=== PATIENT | male | born 1965 | race Caucasian/White ===

== ENCOUNTER 2018-05-03 16:30 | Outpatient (RCR) | payer OTHER, SELFPAY ==
--- NOTE | 2018-03-29 09:23 | HP.OTEVAL_ITS ---
Patient's Visit Information WALE BRANDON is a 52 year old M, referred to Occupational Therapy by SACHIN GO, with a diagnosis of right wrist drop. Date of Evaluation: 03/28/18 Occupational Therapist: Ella Jimenez, OG/Nestor, CHT - Subjective Subjective: This 52 year old male was seen for intial OT eval with dx of right wrist drop- pt states on Mar.15 he woke upt with the inability to extend his fingers and wrist-. pt states he did fall out of bed and hit his head a few nights before, so he is not sure if it is related to this accident or not. pt states he does have CTS. pt states some tingling in his LF/RF. 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 Pt will demo an increase in lateral and tripod pinch by 4# to increase pts independent with opening baggies, containers at PLOF by D/C. Goal:: pt will demo full wrist and digit ext to WNL to return pt to PLOF with ADLs, IADLs and work tasks by d/c. Goal:: pt will demo the ability to manipulate coins, and hold small, med, and large objects ind. by D/C Goal:: pt will demo understanding of orthosis use and precautions by end of 1st session to prevent skin irritation - Rehabilitation General Assessment: pt demo with a limited ability to extend wrist and fingers- placing pts wrist and MCP in Neutral position pt demo ability to extend digits at PIP levels. Pt demo weak telecommunications network planner and pinch strength and coompromised AROM of right wrist/hand. pt would benefit from skilled OT services 1x week for 6 weeks to assist pt with ad. devices to return to [facility] with ADLS and work tasks. Due to pts limited wrist and digit ext pt would benefit from custom low profile radial N. orthosis that allows for digit flex but assist pt with digit ext.- Today therapist noé. one for pt ed. pt on use and crare. Pt demo understanding- with orthosis on pt demo ability to flower buncher or picker pen. Pt was also ed. in radial N gluide ex. pt demo performace of ex. well. Rehabilitation Potential: Good - Anticipated Interventions Anticipated Interventions: A/AAROM/PROM, Strengthening, Triggerpoint Release, Modalities, Orthoses, Fine Motor Coord/Carlo, Home Program Other Interventions: Nerve gluide - Visit Plan Frequency: 1x/Week Duration: 6 Weeks TEXT: Thank you for the opportunity to evaluate your patient. For Medicare and Medicare HMO plans, please review the plan of care and approve it. It will need to be FAXED BACK to us at [phone] for Medicare purposes. Please let me know if there are questions or concerns regarding this plan of care. Physician Lizzette re: Date:
--- NOTE | 2018-09-19 08:23 | HP.OT.NRP ---
HP - Discharge Summary - Patient Information WALE BRANDON was seen in my office for initial evaluation on 03/28/18. The following Plan of Care was established for this patient: Initial Frequency: 1x/Week Initial Duration: 6 Weeks Plan: cont FES - Anticipated Interventions Anticipated Interventions: A/AAROM/PROM, Strengthening, Triggerpoint Release, Modalities, Orthoses, Fine Motor Coord/Carlo, Home Program Other Interventions: Nerve gluide This patient was last seen in our office 05/03/18. Pertinent comments regarding their Occupational therapy will appear below: PT was seen for 7 OT visits for radial nerve wrist drop. Pt recived radial nerve brace and demo understanding of nerve glides-pt to see maddie on results of MRI and has not returned to therapy. Due to time lapse in care pt d/c At this point I will be discontinuing this patient from occupational therapy. I would be happy to see this patient again in the future if found appropriate by the physician. Thank you! Ella Jimenez, OTR/L, CHT
== END 2018-05-03 19:00 | disposition home or self-care (01) ==
LOC: OT 16:30
PROVIDERS: Family Provider Family Medicine; PCP Family Medicine
DX: M21.331 Wrist drop, right wrist (principal); M20.091 Other deformity of right finger(s)
CPT/HCPCS: 97110; 97166; 97530; 97760; 97763

== ENCOUNTER → 2023-03-29 | Outpatient (CLI) | payer OTHER, SELFPAY ==
--- OUTSIDE RECORDS SUMMARY | 2023-03-29 13:43 | XMS RPT_ITS | CCD ---
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 Mechanic Name Role Phone Katherin Stoddard Primary Care Provider Barrett, Aleida Unavailable Unavailable Chela, Avirup Unavailable Unavailable Zbyron, Rickie Unavailable Unavailable Katherin Stoddard Unavailable Unavailable Miles Stoddard Unavailable Unavailable Khanh Zavaleta Unavailable Unavailable Barrett, Aleida Unavailable Unavailable Chela, Avirup Unavailable Unavailable Jeanie Cuevas Unavailable Unavailable Brigitte Love Unavailable Unavailable Adryan Joshua Unavailable Unavailable Chela, Avirup Unavailable Unavailable Katherin Stoddard Primary Care Provider SYSTEM, PROVIDER NOT IN Admitting UnavailROSIBEL Dumont Attending Unavailable ADRIANO ZHOU Referring Unavailable KATHERIN STODDARD Primary Care Unavailable Bebeto Guevara Unavailable Unavailable Zumbar, Rickie Unavailable Unavailable Kelsi Sargent Unavailable Unavailable Bebeto Guevara Unavailable Unavailable Arlyn Katherin A Unavailable Unavailable Unavailable Unavailable Unavailable Dr. Rickie Milner Referring Unavailable Arlyn, Dr. Katherin Reyes Primary Care Unavaila Kapil Sarkar Attending Unavailab le Alf, Dr. Rickie Wyatt Attending Sonamv bhavin Stoddard, Dr. Katherin Reyes Primary Care Unavaila esvin Milner, Dr. Rickie Wyatt Attending Paramjit Stoddard, Dr. Katherin Reyes Primary Care Unavaila esvin Stoddard, Dr. Katherin Reyes Primary Care Unavaila esivn Milner, Dr. Rickie Wyatt Attending Unav ailable Arlyn, Dr. Katherin Reyes Primary Care Unavaila ble Zumbar, Dr. Rickie Wyatt Attending Unav ailable Zumbar, Dr. Rickie Wyatt Attending Unav ailable Arlyn, Dr. Katherin Reyes Primary Care Unavaila ble Arlyn, Dr. Katherin Reyes Primary Care Unavaila ble Arlyn, Dr. Katherin Reyes Attending Unavaila ble Arlyn, Dr. Katherin Reyes Primary Care Unavaila ble Erma, MsCandida Benjamin Attending Unavai lable Erma, Ms. Orquidea Benjamin Referring Unavai lable Arlyn, Dr. Katherin Reyes Primary Care Unavaila ble Zumbar, Dr. Rickie Wyatt Attending Unav ailable Zumbar, Dr. Rickie Wyatt Referring Unav ailable Zumbar, Dr. Rickie Wyatt Admitting Unav ailable Arlyn DO, Katherin Reyes Primary Care Provider Arlyn DO, Katherin Reyes Unavailable [phone] KATHERIN STODDARD Primary Care Unavailable ARLYNKATHERIN GAMA Primary Care Unavailable KATHERIN STODDARD Referring Unavailable Arlyn DO, Katherin Reyes Primary Care Provider Arlyn DO, Katherin Reyes Unavailable Allergies Allergy Classification Reported Allergen(s) Allergy Type Date of Onset Reaction(s) Facility Bee/Wasp/Ant Venom (2 sources) apis mellifera venom Substance Allergy Unknown -[facility] Work Phone: (3 sources) Bee Venom Protein (Honey Bee); Translations: [Unknown] Propensity to adverse reactions to drug 6 [facility] (20 sources) apis mellifera venom allergy to substance Unknown [facility] Work Phone: (3 sources) ALLERGIES NOT ON FILE; Translations: [ALLERGIES NOT ON FILE] Propensity to adverse reactions (disorder) [facility] Medications Completed/Discontinued Medications Medication Drug Class(es) Dates Sig (Normalized) Sig (Original) acetaminophen 325 mg / HYDROcodone bitartrate 10 mg oral tablet (20 sources) Opioid Agonist take 1 tablet by mouth every four hours as needed for pain HYDROcodone-Aceta minophen 10-325 MG Oral Tablet TAKE 1 TABLET EVERY 4 HOURS NEEDED FOR PAIN. Quantity: 0 Refills: 0 Ordered: 11-Mar-2020 DO Active [id number] 200 actuat albuterol 0.09 mg/actuat metered dose inhaler (20 sources) beta2-Adrenergic Agonist Start: 04-29-2015 ProAir HFA 108 (90 Base) MCG/ACT AERS Quantity: 0 Refills: 0 Ordered: 29-Apr-2015 DO Start : 29-Apr-2015 Active Problems Active Problems Problem Classification Problem Date Documented Date Episodic/Chronic Cardiac dysrhythmias (20 sources) Atrial fibrillation; Translations: [Atrial fibrillation] Onset: 07-24-2021 Chronic Chronic obstructive pulmonary disease and bronchiectasis (2 sources) Centrilobular emphysema; Translations: [Other emphysema] Onset: 11-03-2021 Chronic Coronary atherosclerosis and other heart disease (1 source) Atherosclerotic heart disease of ramona coronary artery without angina pectoris; Translations: [Athscl heart disease of ramona coronary artery w/o ang pctrs] Onset: 11-03-2021 Chronic Diabetes mellitus without complication (4 sources) Impaired fasting glucose; Translations: [Impaired fasting glucose] Onset: 12-27-2022 Episodic Disorders of lipid metabolism (1 source) Hyperlipidemia, unspecified; Translations: [Hyperlipidemia, unspecified] Onset: 07-24-2021 Chronic Esophageal disorders (1 source) Gastro-esophageal reflux disease without esophagitis; Translations: [Gastro-esophageal reflux disease without esophagitis] Onset: 07-24-2021 Chronic Essential hypertension (1 source) Essential (primary) hypertension; Translations: [Essential (primary) hypertension] Onset: 07-24-2021 Chronic Other acquired deformities (1 source) Wristdrop; Translations: [Right wrist drop] Episodic Other and unspecified benign neoplasm (20 sources) Cavernous hemangioma; Translations: [Hemangioma of unspecified site] Episodic Other connective tissue disease (20 sources) Spasm; Translations: [Spasm of muscle] Episodic Other connective tissue disease (20 sources) Hand pain; Translations: [Pain in limb] Episodic Past or Other Problems Problem Classification Problem Date Documented Date Episodic/Chronic Abdominal hernia (1 source) Diaphragmatic hernia without obstruction or gangrene; Translations: [Diaphragmatic hernia without obstruction or gangrene] Onset: 11-03-2021 Episodic Other aftercare (1 source) assisted (current) use of anticoagulants; Translations: [assisted (current) use of anticoagulants] Onset: 07-24-2021 Episodic Other aftercare (1 source) 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 non-steroidal anti-inflammatories (NSAID); Translations: [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 non-steroidal non-inflam (NSAID)] Onset: 07-24-2021 Episodic Other and unspecified benign neoplasm (4 sources) Hemangioma unspecified site; Translations: [Hemangioma unspecified site] Onset: 12-04-2021 Episodic Other lower respiratory disease (1 source) Other nonspecific abnormal finding of lung field; Translations: [Other nonspecific abnormal finding of lung field] Onset: 11-03-2021 Episodic Residual codes; unclassified (1 source) Other specified postprocedural states; Translations: [Other specified postprocedural states] Onset: 12-04-2021 Episodic Spondylosis; intervertebral disc disorders; other back problems (20 sources) Lumbosacral stenosis; Translations: [Low back pain] Onset: 08-25-2021 Episodic Spondylosis; intervertebral disc disorders; other back problems (10 sources) Radiculopathy of lumbosacral spine due to disc disorder; Translations: [Intervertebral disc disorders with radiculopathy, lumbosacral region] NEGATED: Highlighted row has not occurred!Residual codes; unclassified (20 sources) Disease Episodic Results Test Name Value Interpretation Reference Range Facil ity Vital Signs Date Time Vital Sign Value Performing Clinician Faci lity 12-17-2021 13:18-0400 Body mass index (BMI) [Ratio] 40.41 kg/m2 Katherin Healy [place] Work Phone: EJ-Uqlbwxlfpfsy-Ft uja Work Phone: 12-17-2021 13:18-0400 Body surface area Derived from formula 2.25 m2 Katherin Healy Sh[place] Work Phone: UY-Bfdhhrkczsay-Qv uja Work Phone: 12-17-2021 13:18-0400 Body weight 117.03 kg Katherin Stoddard Work Phone: OJ-Yqzrrlmihibl-Tl uja Work Phone: 12-17-2021 13:18-0400 Diastolic blood pressure 78 mm[Hg] Katherin Stoddard Work Phone: AG-Kzbowsslrmtp-Up uja Work Phone: 12-17-2021 13:18-0400 Heart rate 60 /min Katherin Stoddard Work Phone: CV-Jzndwclslnpf-Yf uja Work Phone: 12-17-2021 13:18-0400 Respiratory rate 14 /min Katherin Stoddard Work Phone: AX-Zpauabqfpmbg-Fu uja Work Phone: 12-17-2021 13:18-0400 Systolic blood pressure 141 mm[Hg] Katherin Stoddard Work Phone: YQ-Anvtchwowtxs-Mk uja Work Phone: 12-17-2021 13:18-0400 0 1 Katherin Stoddard Work Phone: EB-Nudfhlhkgxfi-Bg uja Work Phone: Encounters Encounter Date Encounter Type Care Provider Facility Start: 12-27-2022 End: 12-28-2022 Encounter for general adult medical examination without abnormal findings KATHERIN REYES [facility] Start: 12-27-2022 End: 12-28-2022 ambulatory KATHERIN REYES [facility] Start: 12-27-2022 End: 12-27-2022 Subsequent hospital visit by physician [address] Procedures Date Procedure Procedure Detail Performing Clinician Start: 12-27-2022 CT LUNG SCREENING LOW DOSE KATHERIN STODDARD Start: 12-27-2022 CBC W Auto Different ial panel - Blood Start: 12-27-2022 Comprehensive metabo lic 2000 panel - Serum or Plasma Start: 12-27-2022 Hemoglobin A1c/Hemoglobin.total in Blood Start: 10-23-2023 Lipid panel Start: 12-27-2022 PROSTATE SPECIFIC ANTIGEN Start: 12-27-2022 Thyrotropin [Units/v olume] in Serum or Plasma Start: 12-27-2022 CT Chest for screening Katherin Stoddard DO Work Phone: Start: 12-27-2022 Lipid 1996 panel - S myriam or Plasma [facility] 1 Start: 10-24-2021 Lipid 1996 panel - S myriam or Plasma [facility] 1 Start: 07-24-2021 Destructive procedure M codik Monet Stoddard Work Phone: Plan of Treatment Date Care Activity Detail Author Start: 12-28-2027 Lipid panel Lipid Panel [facility] Start: 10-24-2026 Lipid panel Lipid Panel [facility] Start: 11-05-2022 Influenza vaccination Influenz a Vaccine (#1) [facility] Start: 05-20-2022 FUV, Provider: Zelalem Simmons, Status: Pen, Time: 3:45 PM FUV, Provider: Zelalem Simmons, Status: Pen, Time: 3:45 PM [facility]tzxij[facility]dh[facility] [address] Work Phone: Start: 03-05-2022 FUV, Provider: Khanh Zavaleta, Status: Pen, Time: 10:40 AM FUV, Provider: Khanh Zavaleta, Status: Pen, Time: 10:40 AM XF-Phcbwqmhwktg-Gjbr a Work Phone: Start: 07-20-2021 FUV, Provider: Rickie Milner, Status: Pen, Time: 3:30 PM FUV, Provider: Rickie Milner, Status: Pen, Time: 3:30 PM [facility] Work Phone: Start: 05-20-2021 FUV, Provider: Zelalem Simmons, Status: Pen, Time: 3:45 PM FUV, Provider: Zelalem Simmons, Status: Pen, Time: 3:45 PM [facility] Work Phone: Start: 05-20-2021 FUV, Provider: Jayy York, Status: Pen, Time: 3:15 PM FUV, Provider: Jayy York, Status: Pen, Time: 3:15 PM -[facility] Work Phone: Start: 04-13-2021 FUV, Provider: Rickie Milner, Status: Pen, Time: 3:30 PM FUV, Provider: Rickie Milner, Status: Pen, Time: 3:30 PM [facility] Work Phone: Start: 02-17-2021 FUV, Provider: Bebeto Guevara, Status: Pen, Time: 3:30 PM FUV, Provider: Bebeto Guevara, Status: Pen, Time: 3:30 PM [facility] 300 Work Phone: Start: 02-09-2021 FUV, Provider: Rickie Milner, Status: Pen, Time: 3:30 PM FUV, Provider: Rickie Milner, Status: Pen, Time: 3:30 PM [facility] Work Phone: Start: 01-06-2021 FUV, Provider: Bebeto Guevara, Status: Pen, Time: 3:30 PM FUV, Provider: Bebeto Guevara, Status: Pen, Time: 3:30 PM [facility] Work Phone: Start: 01-06-2021 FUV, Provider: Rickie Milner, Status: Pen, Time: 3:30 PM FUV, Provider: Rickie Milner, Status: Pen, Time: 3:30 PM [facility] Work Phone: Start: 12-01-2020 FUV, Provider: Rickie Milner, Status: Pen, Time: 3:30 PM FUV, Provider: Rickie Milner, Status: Pen, Time: 3:30 PM [facility] Work Phone: Start: 11-04-2020 FUV, Provider: Rickie Milner, Status: Pen, Time: 3:30 PM FUV, Provider: Rickie Milner, Status: Pen, Time: 3:30 PM -[facility] Work Phone: Start: 09-09-2020 FUV, Provider: Rickie Milner, Status: Pen, Time: 3:30 PM FUV, Provider: Rickie Milner, Status: Pen, Time: 3:30 PM [facility] Work Phone: Start: 08-19-2020 FUV, Provider: Rickie Milner, Status: Pen, Time: 3:30 PM FUV, Provider: Rickie Milner, Status: Pen, Time: 3:30 PM [facility] Work Phone: Start: 05-20-2020 Ct lower extremity w /o contrast material CT Low Extremity without Contrast [facility] Work Phone: Start: 11-06-2019 Influenza vaccinatio n given Sequential Influenza Vaccine (#1) [facility] Start: 11-05-2017 Influenza vaccinatio n given SEQUENTIAL INFLUENZA VACCINE (#1) [facility] Start: 2016 Administration of he rpes zoster vaccine Zoster Vaccines (1 of 2) [facility] Start: 2016 Zoster Vaccines (1 of 2) Zoste r Vaccines (1 of 2) [facility] Start: 1988 DTaP/Tdap/Td Vaccine s (1 - Tdap) DTaP/Tdap/Td Vaccines (1 - Tdap) [facility] Start: 1984 Hepatitis C antibody , confirmatory test Hepatitis C Screening [facility] Start: 1984 Hepatitis C screening Hepatiti s C Screening [facility] Start: 1981 HIV screening HIV Screening [facility] Start: 1969 History and physical examination, annual for health maintenance Wellness Visit [facility] Start: 09-11-1967 MMR Vaccines (1 of 1 - Standard series) MMR Vaccines (1 of 1 - Standard series) [facility] Start: 03-13-1967 COVID-19 Vaccine (#1) COVID-19 Vaccine (#1) [facility] Start: 1966 Hepatitis B Vaccines (1 of 3 - 3-dose series) Hepatitis B Vaccines (1 of 3 - 3-dose series) [facility] Start: 1966 HIV screening HIV Screening [facility] Start: 1966 Prostate specific antigen measurement [facility] Level [facility] Start: 1966 Protein mass conc [facility] Start: 1966 Screening for malign ant neoplasm of colon [facility] Start: 1966 Tetanus vaccination [facility] Start: 1966 Yearly Adult Physical Yearly A dult Physical [facility] NEGATED: Highlighted row has been ruled out! Planned Goals not documented [facility] Work Phone: Payers Date Payer Category Payer Unknown 2019 Private Health Insurance [id number] 2019 Unknown [facility] PL[facility] [id number] 2019-Present [id number] 2015 Unknown MMO [employer] S UPER[employer] PPO xxxxxxxxxxxx 2015-Present [id number] 2015 Unknown [id number] 1966 Unknown [id number] 1966 Unknown [id number] .356 1966 Unknown [id number] [id number] .1069 1966 Unknown [id number] [id number] .1069 1966 Unknown [id number] [id number] .9 1966 Unknown [id number] [id number] .1068 1966 Unknown [id number] [id number] .1069 1966 Unknown [id number] [id number] .1068 1966 Unknown [id number] [id number] .1069 1966 Unknown [id number] [id number] .1068 1966 Unknown [id number] [id number] .1245 1966 Unknown [id number] [id number] .1244 1966 Unknown [id number] .1243 Social History Date Type Detail Facility Start: 03-30-2018 Tobacco smoking status ORIS Unknown if ever smoked [facility] Start: 1966 Sex Assigned At Not on file [facility] Start: 12-17-2022 End: 12-27-2022 Exposure to SARS-CoV-2 (event) Not sure [facility] Alcohol consumption one to two days per week Alcohol consumption one to two days per week [facility] Work Phone: Medical Equipment Procedure Code Equipment Code Equipment Origin al Text Equipment Identifier Dates Plate, Lw Prof Dbl-Y, 6 Hole, 8mm Case [id number] Start: 07-03-2018 Functional Status Date Assessment Result Facility NEGATED: Highlighted row Functional performance Functional status health issues are not documented Disease -Pain [facility] Work Phone: Mental Status Date Assessment Result Facility NEGATED: Highlighted row Cognitive function [Interpretation] Cognitive status health issues are not documented Disease -Pain [facility] Work Phone: Clinical Notes 08-05-2018 to 07-24-2021 Note Date & Type Note Facility 07-24-2021 Note PROCEDURE DETAILS Preoperative Diagnosis: Spondylosis without myelopathy or radiculopathy, lumbosacral region, M47.817 Postoperative Diagnosis: Spondylosis without myelopathy or radiculopathy, lumbosacral region, M47.817 Surgeon: Rickie Milner Resident/Fellow/Other Automotive Project Engineer: None of these were associated with this case Procedure: 1. BILAT L3-L5 MB RFA Anesthesia: Bebeto Morin Estimated Blood Loss: 0 Findings: NA Operative Report: Procedure: Bilateral lumbar medial branch radiofrequency ablation under fluoroscopic guidance of the medial branches of L3-L5 covering the L4-S1 facet joints Diagnosis: Lumbosacral spondylosis Anesthesia: MAC, sedation was needed due to the painful nature of the procedure Complications: none After informed consent was obtained, the patient was brought to the OR and placed in the prone position. The area in question was prepped and draped in sterile fashion. An ipsilateral oblique fluoroscopic view of the lumbar spine was obtained, and after 0.25 ml of lidocaine 2% was administered into the skin at each site, a 20-gauge curved radiofrequency needle with a 10 mm active tip was inserted into the skin and advanced to the junction of the superior articular process and transverse processes of the L4 and L5 vertebrae and to the sacral ala on the left side under intermittent fluoroscopic guidance. Proper needle position was confirmed by AP and lateral fluoroscopy. Sensory stimulation was conducted at 50 Hz at each site and was positive at or below 0.7 V. Motor stimulation was conducted at 2 Hz at each site and was negative for radicular motion at 3 V. Once testing was complete, 1 ml of 2% lidocaine was injected through each needle and radiofrequency lesioning was conducted at 80 degrees Celsius for 90 seconds each site. Two lesioning cycles were done per site. After lesioning was complete, 1 mL of 0.5% bupivacaine was injected through each needle. The needles were removed. Bleeding was minimal. The procedure was repeated in the same manner at the same levels on the opposite side. The patient tolerated the procedure well and was transferred to the recovery room in good condition. Attestation: Note Completion: Attending AttestationI performed the procedure without a resident Electronic Signatures: Rickie Milner) (Signed 24-Jul-2021 10:08) Authored: Post-Operative Note, Chart Review, Note Completion Last Updated: 24-Jul-2021 10:08 by Rickie Milner) [facility] 04-27-2021 History of Present illness Narrative On a scale of 0 to 10, the patient rates the pain at 2.Pain Location: Low Back Pain.Pain Quality: Sharp.Timing/Duration: Intermittent.Exacerbating Factors: repetitive motion and standing.Alleviating Factors: Medications, Repositioning.24 Hour Behavior:Symptoms are the same in the am. DEPENDING ON ACTIVITY.Symptoms are the same as the day progresses. DEPENDING ON ACTIVITY.Symptoms are the same in the pm. DEPENDING ON ACTIVITY.Symptoms are the same when lying down. DEPENDING ON ACTIVITY.Goals for Pain Management:OPIOID RISK SCORE=0. [employer] Work Phone: 02-09-2021 History of Present illness Narrative On a scale of 0 to 10, the patient rates the pain at 5.Pain Location: Low Back Pain.Pain Quality: Aching, Sharp and Throbbing.Timing/Duration: Constant.Exacerbating Factors: standing.Alleviating Factors: Exercise, Medications, Repositioning.24 Hour Behavior:Symptoms are the same in the am.Symptoms are worse as the day progresses.Symptoms are worse in the pm.Symptoms are the same when lying down. [employer] Work Phone: 12-22-2020 History of Present illness Narrative On a scale of 0 to 10, the patient rates the pain at 4.Pain Location: Low Back Pain and bilat.Pain Quality: Aching, Sharp and Throbbing.Pain Radiation: denies since injection.Timing/Duration: Constant and > 12 weeks duration. [employer] Work Phone: 11-13-2020 History of Present illness Narrative Patient is a pleasant 55-year-old male presenting today for a follow up of right hand pain. Patient had an EMG done on 11/13/20. He states his pain scale is a 5/10 today and some days are worse than others. He states he experiences a numbness and tingling sensation that radiates up his entire arm and lasts between 4-6 hours. States he has to pry the fingers open and pain worsens as the day goes on due to strenuous activity. Pt states the pain began with a spinal surgery he had a couple of months ago and notes the hand and arm have never been the same again. He was told by his surgeon that he has another year to be fully recovered, but he does not believe he is healing and is unsure where to go from here. [facility] 300 Work Phone: 11-13-2020 History of Present illness Narrative Patient is a pleasant 55-year-old male presenting today for a follow up of right hand pain. Patient had an EMG done on 11/13/20. He states his pain scale is a 5/10 today and some days are worse than others. He states he experiences a numbness and tingling sensation that radiates up his entire arm and lasts between 4-6 hours. States he has to pry the fingers open and pain worsens as the day goes on due to strenuous activity. Pt states the pain began with a spinal surgery he had a couple of months ago and notes the hand and arm have never been the same again. He was told by his surgeon that he has another year to be fully recovered, but he does not believe he is healing and is unsure where to go from here. -[facility] Work Phone: 08-05-2018 History of Present illness Narrative Wale Brandon is a 54-year-old male with PMHx significant for cervical spine cavernous malformation s/p resection and subsequent washout in 08/[address] Carroll. Patient with chronic back pain and bilateral lower leg pain. He was evaluated by Dr. Zavaleta in 2019 who recommended surgical RFA at L5-S1. However, patient opted for medical management including physical therapy, cortisone injections, and continues to follow with pain management. EMG and repeat EMG have remained negative.He complains of right C7 parasthesias that have worsened since his surgery. He states that he also has neck pain, particularly with looking up. [facility]Wotmdwpukbss-Jddau Work Phone: documented in this encounter [facility] Work Phone: History of Present illness NarrativePatient is a very pleasant 54-year-old male who presents today in follow-up with regards to his Guyon's canal release. Patient has been having some improvement of his symptoms primarily in the stinging and burning electrical sensation he was having in his hand otherwise he has had no improvement ofhis numbness tingling and no real improvement in theMotor function of the intrinsic [facility] Work Phone: History of Present illness Narrative* On a scale of 0 to 10, the patient rates the pain at 4. * Pain Location: Low Back Pain and R. * Pain Quality: Aching, Dull, Sharp and occasional sharp. * Pain Radiation: R hip, leg, knee, ankle. * Timing/Duration: Constant and > 12 weeks duration. [facility] Work Phone: History of Present [facility] Narrative* On a scale of 0 to 10, the patient rates the pain at 9. * Pain Location: Low Back Pain and RIGHT LOWER BACK WITH SHARP ACHING PAINS INTO HIS LEG DOWN TO HIS ANKLE. * Pain Quality: Aching, Sharp and Tightness. * Timing/Duration: Intermittent. * Exacerbating Factors: motion, repetitive motion, stairs and walking. * Alleviating Factors: Medications, Repositioning. * 24 Hour Behavior: * Symptoms are worse in the am. * Symptoms are worse as the day progresses. * Symptoms are the same in the pm. * Symptoms are the same when lying down. [facility] Work [facility]: History of Present illness NarrativePatient is a pleasant 55-year-old male presenting today for 6 week follow-up for right hand pain. He is accompanied by his . Patient states the hand has its good and bad days. There are some dayswhere he is in minimal pain and some days where the pain is unbearable. He states pain in the hand increases when his neck pain worsens. Pain often presents with a numbness and tingling sensation that radiates up the arm. He states he does not believe the strength is coming back. He had an EMG doneon 11/13/20 and is requesting for a repeat EMG to monitor his current state. Moving forward, he states he would like to get repeat EMG's at 6 month intervals. He states he was seen by a chiropractor and does not feel it was beneficial.[facility] Work Phone: History of Present illness NarrativePatient is a pleasant 55-year-old male presenting today for 6 week follow-up for right hand pain. He is accompanied by his . Patient states the hand has its good and bad days. There are some dayswhere he is in minimal pain and some days where the pain is unbearable. He states pain in the hand increases when his neck pain worsens. Pain often presents with a numbness and tingling sensation that radiates up the arm. He states he does not believe the strength is coming back. He had an EMG doneon 11/13/20 and is requesting for a repeat EMG to monitor his current state. Moving forward, he states he would like to get repeat EMG's at 6 month intervals. He states he was seen by a chiropractor and does not feel it was beneficial.[facility] Work Phone: History of Present illness NarrativePatient is a pleasant 55-year-old male presenting today to review EMG results. Patient states the elbow is the same and denies any improvement. He feels the elbow has been progressively worsening andhe has now been experiencing a stinging sensation. He has difficulty with range of motion. 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 He does feel surgical intervention is the best option, but he is unable to at this time while he is caring for his .[facility] 300 Work Phone: History of Present illness NarrativePatient is a pleasant 55-year-old male presenting today to review EMG results. Patient states the elbow is the same and denies any improvement. He feels the elbow has been progressively worsening andhe has now been experiencing a stinging sensation. He has difficulty with range of motion. 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 He does feel surgical intervention is the best option, but he is unable to at this time while he is caring for his .[facility] 300 Work Phone: History of Present illness NarrativePatient is a pleasant 55-year-old male presenting today to review EMG results. Patient states the elbow is the same and denies any improvement. He feels the elbow has been progressively worsening andhe has now been experiencing a stinging sensation. He has difficulty with range of motion. 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 He does feel surgical intervention is the best option, but he is unable to at this time while he is caring for his .-[facility] 300 Work Phone: History of Present illness Narrative* 55-year-old gentleman with a medical history of hypertension, hyperlipidemia, sleep apnea status post CPAP, history of paroxysmal atrial fibrillation, here for follow-up: * Problem #1 history of paroxysmal atrial fibrillation * -Underwent PVI ablation in 2019 * -Current medications include Toprol 50 mg daily, Eliquis 5 mg twice daily * Notably coronary artery calcium score 07/27/2016 was 0. * Echocardiogram 07/08/2018 showed preserved biventricular function. * Currently denies any chest discomfort or shortness of breath. Denies any orthopnea/PND/lower extremity edema. * EKG performed in clinic today shows normal sinus rhythm. [id number] [address] Work Phone: History of Present illness Narrative* On a scale of 0 to 10, the patient rates the pain at 5. * Pain Location: Low Back Pain and LEFT LOWER BACK. * Pain Quality: Aching, Tenderness and Tightness. * Timing/Duration: Intermittent and > 12 weeks duration. * Controlled Substance: * I have personally reviewed the [place] report for WALE BRANDON. I have considered the risks of abuse, dependence, addiction and diversion. * Exacerbating Factors: standing. * Alleviating Factors: Exercise, Medications, Repositioning, Other: ___. * 24 Hour Behavior: * Symptoms are the same in the am. * Symptoms are the same as the day progresses. * Symptoms are the same in the pm. * Symptoms are the same when lying down. -[facility] Work Phone: Reason for Referral Status Reason Specialty Diagnoses / Procedures Referred By Contact Referred To Contact Authorized Specialty Services Required/Patient 's Best Interest Neurology Diagnoses Right carpal tunnel syndrome Right wrist drop Jaxon Haney MD [address] [place] [address] Rosibel Acosta MD [address] [place] [address] Specialty Diagnoses / Procedures Referred By Contac t Referred To Contact Radiology Diagnoses Encounter for screening for malignant neoplasm of respiratory organs Tobacco use Nicotine dependence, cigarettes, uncomplicated Procedures CT lung screening low dose [place] [address] [address] Referral ID Status Reason Start Date Expiration Date Visits Requested Visits Authorized [id number] Authorized Perform Procedure 12/03/2022 06/01/2023 1 1 Specialty Diagnoses / Procedures Referred By Contac t Referred To Contact Radiology Diagnoses Encounter for screening for malignant neoplasm of respiratory organs Tobacco use Nicotine dependence, cigarettes, uncomplicated Procedures CT lung screening low dose Arlyn Katherin Melvin, DO [address] [address] Referral ID Status Reason Start Date Expiration Date Visits Requested Visits Authorized [id number] Pending Review Perform Procedure 12/03/2022 06/01/2023 1 1 History of Present Illness * Rosibel Acosta MD - 03/30/2018 11:24 AM EST Procedures ELECTROMYOGRAPHY (Nerve Conduction Study/Needle EMG) Brief History: Patient describes right upper extremity weakness for 1-1/2 weeks. No accompanying pain. Occasionally the fifth digit will feel numb. No history of injury. He has neck pain but no diabetes. Plan: The study is design to evaluate for radiculopathy, plexopathy, entrapment neuropathy, median or ulnar neuropathy. Indication, risk, side effects, and alternatives were explained. Patient agreedto proceed. Please request raw data if needed. EMG Summary: The right median motor and sensory nerve conduction studies were normal. The right ulnar motor and sensory nerve conduction studies were also normal. The right radial, medial and lateral antebrachial cutaneous sensory nerve conduction study were normal. Needle EMG of the muscles tested showed suspicious fibrillations and positive sharp waves on the right EDC and FDI. There are large amplitude, long duration motor unit action potentials seen on the right EDC, FCU, FDP 4/5, ADM. There is no volitional units seen on the right FDI. The rest of the muscle tested showed no abnormal spontaneous activity. Normal motor unit action potentials and recruitment patterns were seen. Impression: This is an abnormal EMG. There is electrodiagnostic evidence suggestive of a possible right lower cervical radiculopathy. Consider imaging study of the cervical area if not done. This study was done may be a little too early since no significant acute denervation is notable at this time. Consider follow-up study in 2-3 weeks if clinically indicated. There is NO electrodiagnostic evidence of right brachial plexopathy, median or ulnar entrapment neuropathy at this time. in this encounter* Rosibel Acosta MD - 10/26/2019 7:53 AM EDT [facility] - Neurology [address] [place] [address] [phone] Nerve Conduction & EMG Report Patient: Wale Brandon Sex: Male Date of : 1965 Visit Date: 10/26/2019 06:41 Age: 54 Years Examining MD: Rosibel Acosta MD Referred by: Dr. Garcia Temperature: 32.2 .Current Height: 5 feet 7 inch Referred for: RUE paresthesias and numbness for a year. + neck pain. No DM. Hx of cervical surgery a year ago. Plan: This study is design to evaluate for entrapment neuropathy, median or ulnar neuropathy, radiculopathy, or brachial plexopathy. Procedure indication, side effects, complications, risk and alternatives were explain. Patient agreed to proceed with verbal consent obtain. Patient was instructed toclean the puncture site with soap and water and put some ice pack for bruising. EMG Summary: The right median and ulnar motor and sensory nerve conduction studies were normal. Theright radial, medial and lateral antebrachial cutaneous sensory nerve conduction studies were also normal. Needle EMG of the tested muscle showed no abnormal spontaneous activity. Normal motor unit action potentials and recruitment patterns were seen. Impression: This is a normal EMG. There is NO clear electrodiagnostic evidence of a right cervical radiculopathy, brachial plexopathy, entrapment neuropathy, median or ulnar neuropathy at this time. Rosibel Acosta MD Diplomate, ABPN, NBPAS Clinical Neurophysiology, Neurology, Vascular Neurology and Sleep Medicine [place] [phone] Amandeep ryan: Portions of this chart was created using [employer] voice recognition software. Occasional wrong-word or sound-like substitutions may have occurred due to inherent limitations of the voice recognition software. Please read the chart carefully and recognize, using context, where the substitutions have occurred. Motor NCS Nerve / Sites Muscle Latency Amplitude Distance Velocity ms mV cm m/s R Median - APB Wrist APB 3.67 11.5 7 Elbow APB 7.69 11.5 22 54.7 R Ulnar - . Wrist ADM 2.96 8.2 6.5 B.Elbow ADM 6.77 6.6 22 57.7 A.Elbow ADM 8.90 6.1 11 51.8 Sensory NCS Nerve / Sites Rec. Site Peak Lat Amp.1 Amp.2 Distance Nahid. d Lat.2 ms V V cm m/s ms R Radial - . Forearm Snuff 1.73 27.5 29.8 10 78.7 R Median, Ulnar - PALMAR Median Palm Wrist 2.06 53.5 31.1 8 55.7 Ulnar Palm Wrist 1.73 14.0 20.7 8 61.9 0.33 R Lateral antebrachial cutaneous - . Elbow Forearm 2.23 0.73 3.1 12 75.8 R Medial antebrachial cutaneous - . Elbow Forearm 1.46 13.4 5.5 12 112.9 EMG Summary Table Spontaneous Activity Amplitude Duration Recruitment Activation Polyphasia Comment Muscle Nerve Roots Ins Act Fib PSW Fasc - - - - - - R. Deltoid Axillary C5-C6 Normal 0 0 0 Normal Normal Normal Normal Normal Normal R. Triceps brachii Radial C6-C8 Normal 0 0 0 Normal Normal Normal Normal Normal Normal R. Biceps brachii Musculocutaneous C5-C6 Normal 0 0 0 Normal Normal Normal Normal Normal Normal R. Pronator teres Median C6-C7 Normal 0 0 0 Normal Normal Normal Normal Normal Normal R. Extensor digitorum communis Radial C7-C8 Normal 0 0 0 Normal Normal Normal Normal Normal Normal R. First dorsal interosseous Ulnar C8-T1 Normal 0 0 0 Normal Normal Normal Normal Normal Normal R. Abductor pollicis brevis Median C8-T1 Normal 0 0 0 Normal Normal Normal Normal Normal Normal R. Cervical paraspinals Spinal C4-C8 Normal 0 0 0 Normal Normal Normal Normal Normal Normal documented in this encounter* Rosibel Acosta MD - 10/26/2019 7:53 AM EDT [facility] - Neurology [address] [place] [address] [phone] Nerve Conduction & EMG Report Patient: Wale Brandon Sex: Male Date of : 1965 Visit Date: 10/26/2019 06:41 Age: 54 Years Examining MD: Rosibel Acosta MD Referred by: Dr. Garcia Temperature: 32.2 .Current Height: 5 feet 7 inch Referred for: RUE paresthesias and numbness for a year. + neck pain. No DM. Hx of cervical surgery a year ago. Plan: This study is design to evaluate for entrapment neuropathy, median or ulnar neuropathy, radiculopathy, or brachial plexopathy. Procedure indication, side effects, complications, risk and alternatives were explain. Patient agreed to proceed with verbal consent obtain. Patient was instructed toclean the puncture site with soap and water and put some ice pack for bruising. EMG Summary: The right median and ulnar motor and sensory nerve conduction studies were normal. Theright radial, medial and lateral antebrachial cutaneous sensory nerve conduction studies were also normal. Needle EMG of the tested muscle showed no abnormal spontaneous activity. Normal motor unit action potentials and recruitment patterns were seen. Impression: This is a normal EMG. There is NO clear electrodiagnostic evidence of a right cervical radiculopathy, brachial plexopathy, entrapment neuropathy, median or ulnar neuropathy at this time. Rosibel Acosta MD Diplomate, ABPN, NBPAS Clinical Neurophysiology, Neurology, Vascular Neurology and Sleep Medicine [facility], [place], [place] [phone] Nota bene: Portions of this chart was created using [employer] voice recognition software. Occasional wrong-word or sound-like substitutions may have occurred due to inherent limitations of the voice recognition software. Please read the chart carefully and recognize, using context, where the substitutions have occurred. Motor NCS Nerve / Sites Muscle Latency Amplitude Distance Velocity ms mV cm m/s R Median - APB Wrist APB 3.67 11.5 7 Elbow APB 7.69 11.5 22 54.7 R Ulnar - . Wrist ADM 2.96 8.2 6.5 B.Elbow ADM 6.77 6.6 22 57.7 A.Elbow ADM 8.90 6.1 11 51.8 Sensory NCS Nerve / Sites Rec. Site Peak Lat Amp.1 Amp.2 Distance Nahid. d Lat.2 ms V V cm m/s ms R Radial - . Forearm Snuff 1.73 27.5 29.8 10 78.7 R Median, Ulnar - PALMAR Median Palm Wrist 2.06 53.5 31.1 8 55.7 Ulnar Palm Wrist 1.73 14.0 20.7 8 61.9 0.33 R Lateral antebrachial cutaneous - . Elbow Forearm 2.23 0.73 3.1 12 75.8 R Medial antebrachial cutaneous - . Elbow Forearm 1.46 13.4 5.5 12 112.9 EMG Summary Table Spontaneous Activity Amplitude Duration Recruitment Activation Polyphasia Comment Muscle Nerve Roots Ins Act Fib PSW Fasc - - - - - - R. Deltoid Axillary C5-C6 Normal 0 0 0 Normal Normal Normal Normal Normal Normal R. Triceps brachii Radial C6-C8 Normal 0 0 0 Normal Normal Normal Normal Normal Normal R. Biceps brachii Musculocutaneous C5-C6 Normal 0 0 0 Normal Normal Normal Normal Normal Normal R. Pronator teres Median C6-C7 Normal 0 0 0 Normal Normal Normal Normal Normal Normal R. Extensor digitorum communis Radial C7-C8 Normal 0 0 0 Normal Normal Normal Normal Normal Normal R. First dorsal interosseous Ulnar C8-T1 Normal 0 0 0 Normal Normal Normal Normal Normal Normal R. Abductor pollicis brevis Median C8-T1 Normal 0 0 0 Normal Normal Normal Normal Normal Normal R. Cervical paraspinals Spinal C4-C8 Normal 0 0 0 Normal Normal Normal Normal Normal Normal documented in this encounter Assessments Diagnosis Right carpal tunnel syndrome Carpal tunnel syndrome Right wrist drop Diagnosis Numbness- Primary Disturbance of skin sensation Cervical radiculopathy Brachial neuritis or radiculitis nos Summary Purpose Family History Mother Name Dates Details Family history of hypertensi on(V17.49, Z82.49) Status:Active Mother Name Dates Details Family history of hypertensi on(V17.49, Z82.49) Status:Active Mother Name Dates Details Family history of hypertensi on(V17.49, Z82.49) Status:Active Mother Name Dates Details Family history of hypertensi on(V17.49, Z82.49) Status:Active Mother Name Dates Details Family history of hypertensi on(V17.49, Z82.49) Status:Active Mother Name Dates Details Family history of hypertensi on(V17.49, Z82.49) Status:Active Mother Name Dates Details Family history of hypertensi on(V17.49, Z82.49) Status:Active Mother Name Dates Details Family history of hypertensi on(V17.49, Z82.49) Status:Active Mother Name Dates Details Family history of hypertensi on(V17.49, Z82.49) Status:Active Mother Name Dates Details Family history of hypertensi on(V17.49, Z82.49) Status:Active Unknown Family Member Name Dates Details Family history of hypertensi on: Mother(V17.49, Z82.49) Status:Active Unknown Family Member Name Dates Details Family history of hypertensi on: Mother(V17.49, Z82.49) Status:Active Unknown Family Member Name Dates Details Family history of hypertensi on: Mother(V17.49, Z82.49) Status:Active Unknown Family Member Name Dates Details Family history of hypertensi on: Mother(V17.49, Z82.49) Status:Active Unknown Family Member Name Dates Details Family history of hypertensi on: Mother(V17.49, Z82.49) Status:Active Unknown Family Member Name Dates Details Family history of hypertensi on: Mother(V17.49, Z82.49) Status:Active Unknown Family Member Name Dates Details Family history of hypertensi on: Mother(V17.49, Z82.49) Status:Active Unknown Family Member Name Dates Details Family history of hypertensi on: Mother(V17.49, Z82.49) Status:Active Unknown Family Member Name Dates Details Family history of hypertensi on: Mother(V17.49, Z82.49) Status:Active Unknown Family Member Name Dates Details Family history of hypertensi on: Mother(V17.49, Z82.49) Status:Active Unknown Family Member Name Dates Details Family history of hypertensi on: Mother(V17.49, Z82.49) Status:Active Unknown Family Member Name Dates Details Family history of hypertensi on: Mother(V17.49, Z82.49) Status:Active Unknown Family Member Name Dates Details Family history of hypertensi on: Mother(V17.49, Z82.49) Status:Active Unknown Family Member Name Dates Details Family history of hypertensi on: Mother(V17.49, Z82.49) Status:Active Unknown Family Member Name Dates Details Family history of hypertensi on: Mother(V17.49, Z82.49) Status:Active Unknown Family Member Name Dates Details Family history of hypertensi on: Mother(V17.49, Z82.49) Status:Active Unknown Family Member Name Dates Details Family history of hypertensi on: Mother(V17.49, Z82.49) Status:Active Unknown Family Member Name Dates Details Family history of hypertensi on: Mother(V17.49, Z82.49) Status:Active Unknown Family Member Name Dates Details Family history of hypertensi on: Mother(V17.49, Z82.49) Status:Active Unknown Family Member Name Dates Details Family history of hypertensi on: Mother(V17.49, Z82.49) Status:Active Unknown Family Member Name Dates Details Family history of hypertensi on: Mother(V17.49, Z82.49) Status:Active Unknown Family Member Name Dates Details Family history of hypertensi on: Mother(V17.49, Z82.49) Status:Active Unknown Family Member Name Dates Details Family history of hypertensi on: Mother(V17.49, Z82.49) Status:Active Advance Directives Documents on File Type Date Recorded 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 SX 06/09/20. STATES STIFFNESS IS MAINLY IN THE MORNING. DIFFICULTY CLOSING FINGERS. PAIN AT THE BASE OF FINGERS.* FUV for Derek L3-L5 MB RFA 7-2-21; 80% effective on the L, 30% effective on the R; R side low back pain with radiation to R hip, entire lateral side of R leg, R knee and ankle; 06/14 today. * This is a 55-year-old male here for a follow-up appointment for chief complaint of low back pain. At his last visit he underwent a bilateral L3 L5 medial branch radiofrequency ablation. She reports over 60% relief overall. The left-sided pain is almost completely absent. The right-sided back pain is somewhat better but he is having some pain on the right leg. He reports that for now his symptoms are manageable. He denies new neurologic symptoms or issues with bladder or bowel control. * The patient's past medical, social, and family history along with medications and allergies are available and were reviewed. * ONGOING LOWER BACK PAIN RIGHT SIDE WITH SHARP ACHING PAINS INTO THE RIGHT LEG DOWN TO HIS ANKLE, ONCE HE GETS UP IN THE MORNING EVERYTHING TIGHTNESS UP AND HE GETS THE GRABBING ACHING PAINS, HE REPOSITIONS, TAKES HYDROCODONE FOR RELIEF, SCORE TODAY 11/14 * This is a 55-year-old male here for a follow-up for chief complaint of low back and right leg pain.He reports that since his last visit the left-sided pain is remained absent. He is still having pain on the right side more so in the leg. He states that he will get pain in the right buttock then itwill skip the thigh start in the lateral aspect of the knee and radiate down the lateral ankle. Hisright foot feels weak. He will get numbness and tingling in the bottoms of both feet. He reports the baclofen seems to help. He is only using in the morning for his if he uses it at bedtime he actually wakes up feeling worse. He asks if it would be okay to try using it in midday. He will typically use the hydrocodone or tramadol during that time but would like to see if he could reduce his narcotic usage by using a midday baclofen. He denies additional neurologic symptoms or issues with bladderor bowel control. * The patient's past medical, social, and family history along with medications and allergies are available and were reviewed. * FUV for bilat SIJ on 12-05-20 report 80% relief with injection and it is still helping the back spasms and lt leg pain. Today having pain in bilat lower back rates 4/10, describes as ache/ throbbing and intermittently sharp. * This is a 55-year-old male here for a follow-up appointment for chief complaint of low back and hippain. At his last visit he underwent a bilateral sacroiliac injection. He reports 80% relief. He reports the relief was immediate. He states some of the pain has started to return but he is still 70%improved at this point in time. He has been able to reduce his use of the pain medication. He denies new neurologic symptoms or issues with bladder or bowel control. He notes that ever since his cervical surgery he has had issues with urinary urgency. He states that this has been worsened since the injection although over the past week it is starting to get back down toward baseline. He denies new neurologic symptoms or new issues with bladder or bowel control. * The patient's past medical, social, and family history along with medications and allergies are available and were reviewed. Patient here for a fu for right hand pain..Emg was done 11/13/20...Pain scale is a 5/10 today..Patient here for a fu for right hand pain..Emg was done 11/13/20...Pain scale is a 5/10 today..Patient here for a fu for right hand pain..Emg was done 11/13/20...Pain scale is a 5/10 today..* ONGOING LOWER BACK PAIN, THE LONGER HE STANDS THE MORE ACHING,SHARP,THROBBING PAIN HE GETS, HE TAKES HIS TRAMADOL AND GABAPENTIN AND DOES STRETCHES AND REPOSITIONS FOR RELIEF, THE DAY PROGRESSES THE MORE DISCOMFORT HE HAS, SCORE 5/10 * This is a 55-year-old male here for a follow-up appointment for chief complaint of low back and hippain. He reports that since his last visit his symptoms have remained under decent control. He thinks the sacroiliac injections helped more than the previous procedures. He reports that some of the pain is now returning but he is still able to function. He states it is present and equal on both sides. He has not noticed much in the way of symptoms going down the legs. He denies any issues with loss of bladder or bowel control. He denies new neurologic symptoms or issues. * The patient's past medical, social, and family history along with medications and allergies are available and were reviewed. PT HERE FOR 6 WK FU RIGHT HAND PAIN. HERE WITH . STATES HAND HAS GOOD AND BAD DAYS. PAIN IN THEHAND INCREASES WHEN NECK PAIN WORSENS.PT HERE FOR 6 WK FU RIGHT HAND PAIN. HERE WITH . STATES HAND HAS GOOD AND BAD DAYS. PAIN IN THE HAND INCREASES WHEN NECK PAIN WORSENS.PT HERE FOR EMG RESULTS. STATES ELBOW IS THE SAME, NO IMPROVEMENT. FEELS ELBOW IS WORSENING. STINGING SENSATION. DIFFICULTY WITH ROM.PT HERE FOR EMG RESULTS. STATES ELBOW IS THE SAME, NO IMPROVEMENT. FEELS ELBOW IS WORSENING. STINGING SENSATION. DIFFICULTY WITH ROM. PT HERE FOR EMG RESULTS. STATES ELBOW IS THE SAME, NO IMPROVEMENT. FEELS ELBOW IS WORSENING. STINGING SENSATION. DIFFICULTY WITH ROM.* F/U LEFT>RIGHT SIDE LOWER BACK DISCOMFORT, SHARP PAIN TO THE LOWER BACK WHEN HE STANDS IN FOR LONG PERIODS OF TIME, REP MOTION, TAKING BACLOFEN PRN, SCORE 2/10 * This is a 55-year-old male here for a follow-up appointment for chief complaint of low back and hippain. He reports that since his last visit some of the pain has been returning although it is stillmanageable. He feels it a little bit more on the left than the right. It is similar to what he was f eeling prior to the RFA. He denies radiation down the legs. He denies new neurologic symptoms or issues with bladder or bowel control. He is using the baclofen which helps with the spasms. He will also use Cotter for the more severe pain. He is able to function at work. * The patient's past medical, social, and family history along with medications and allergies are available and were reviewed. Atrial fibrillation status post ablation (2019)* LEFT LOWER BACK PAIN, ACHING,TIGHT,TENDER, MORE DISCOMFORT WITH STANDING IN ONE SPOT IT TIGHTNESS UP AND GETS VERY PAINFUL, THE MORE ACTIVE HE IS THE MORE LOOSE IT FEELS, TAKING HYDROCODONE LIKE SKITTLES FOR PAIN, TRAMADOL, BACLOFEN, MELOXICAM, DOING HOME EXERCISES/STRETCHES, CHIROPRACTIC ADJUSTMENTS TWICE A WEEK, HE WOULD LIKE TO DISCUSS GETTING NEW IMAGING FOR HIS ONGOING NECK AND BACK ISSUES, SCORE 5/10 * This is a 56-year-old male here for a follow-up appointment for chief complaint of neck and low back pain. He reports that since his last visit the neck issues have gotten more problematic. He statesthe pain is equal on both sides and he is having worsening hand weakness on both sides as well. 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 He reports that his back pain is also becoming more bothersome although in this case it is much more on the left. He states it is mainly present when he is standing and walking. He would like to look into surgical intervention. He would like to see if he has options that do notinvolve a fusion. He is using multiple pain medications which help to an extent. He has been getting chiropractic adjustments twice a week. He denies new neurologic symptoms or issues with bladder orbowel control. * The patient's past medical, social, and family history along with medications and allergies are available and were reviewed. * Patient is being seen for Neck and right arm pain and a follow-up Neurosurgical visit. * NPV Additional Source Comments (unrecognized sect ion and content) No Status Records FoundNo Status Records FoundNo Status Records FoundNo Status Records FoundNo Status Records FoundNo Status Records FoundNo Status Records FoundNo Status Records FoundNo Status Records Found INFORMATION SOURCE (unrecogn ized section and content) DATE CREATED AUTHOR AUTHOR'S ORGANIZ ATION 10/26/2019 [facility] DATE CREATED AUTHOR AUTHOR'S ORGANIZ ATION 10/29/2021 [facility] DATE CREATED AUTHOR AUTHOR'S ORGANIZ ATION 12/09/2021 [facility] DATE CREATED AUTHOR AUTHOR'S ORGANIZ ATION 02/10/2022 [facility] DATE CREATED AUTHOR AUTHOR'S ORGANIZ ATION 06/10/2022 [facility] DATE CREATED AUTHOR AUTHOR'S ORGANIZ ATION 12/28/2022 [facility] DATE CREATED AUTHOR AUTHOR'S ORGANIZ ATION 01/02/2023 [facility] DATE CREATED AUTHOR AUTHOR'S ORGANIZ ATION 01/16/2023 [facility] Reason for Visit (unrecogniz ed section and content) Specialty Diagnoses / Procedures Referred By Nery roberson Referred To Contact Radiology Diagnoses Encounter for screening for malignant neoplasm of respiratory organs Tobacco use Nicotine dependence, cigarettes, uncomplicated Procedures CT lung screening low dose Katherin Stoddard DO [address] [facility] [address] [place] [address] Referral ID Status Reason Start Date Expiration Date Visits Requested Visits Authorized [id number] Authorized Perform Procedure 12/03/2022 06/01/2023 1 1 Specialty Diagnoses / Procedures Referred By Contac t Referred To Contact Radiology Diagnoses Encounter for screening for malignant neoplasm of respiratory organs Tobacco use Nicotine dependence, cigarettes, uncomplicated Procedures CT lung screening low dose Katherin Stoddard DO [address] [facility] [address] [place] [address] Referral ID Status Reason Start Date Expiration Date Visits Requested Visits Authorized [id number] Pending Review Perform Procedure 12/03/2022 06/01/2023 1 1 Care Teams (unrecognized sec tion and content) [employer] Relationship Specialty Start Date End Date Katherin Stoddard DO [address] [address] PCP - General 04/04/19 Katherin Stoddard DO [address] [address] PCP - MMO ACO PCP 05/05/22 FOR RECORDS PERTAINING TO PATIENTS WHO ARE OR HAVE BEEN ENROLLED IN A CHEMICAL DEPENDENCY/SUBSTANCEABUSE PROGRAM, SOME INFORMATION MAY BE OMITTED. This clinical summary was aggregated from multiple sources. Caution should be exercised in using it in the provision of clinical care. This summary normalizes information from multiple sources, and as a consequence, information in this document may materially change the coding, format and clinical context of patient data. In addition, data may be omitted in some cases. CLINICAL DECISIONS SHOULD BE BASED ON THE PRIMARY CLINICAL RECORDS. [facility]. provides no warranty or guarantee of the accuracy or completeness of information in this document.
== END | disposition home or self-care (01) ==
LOC: BFHLAB 13:17 → LABSPEC 13:18
PROVIDERS: PCP Family Medicine; Visit Provider Family Medicine
DX: N49.2 Inflammatory disorders of scrotum (principal)
CPT/HCPCS: 87070; 87075; 87077; 87186; 87205

== ENCOUNTER → 2024-02-27 | Outpatient (CLI) | payer BC, SELFPAY ==
[2024-02-27 12:04] LABS: Color, Urine Yellow (Yellow); Glucose, Dipstick Normal (Normal); Ketone-Dipstick Negative (Negative); Leukocyte Esterase-Dipstick Negative /ul (Negative); Nitrite-Dipstick Negative (Negative); Occult Blood-Urine Negative /ul (Negative); Protein-Dipstick Negative (Negative); Specific Gravity, Urine 1.015 (1.002-1.030); Urine Bilirubin Dipstick Negative (Negative); Urine Clarity Clear (Clear); Urine Urobilinogen 1 mg/dl (Normal)
[2024-02-27 12:12] LABS: Absolute Lymphocyte Count 1.74 X10^3/uL (0.83-4.51); Basophil# 0.08 X10^3/uL; Basophil% 1.1 % (0-1); Eosinophil# 0.39 X10^3/uL; Eosinophils% 5.6 % (0-5); Hematocrit 46.2 % (40-54); Hemoglobin 15.6 g/dL (13.0-16.5); Lymphocyte # 1.74 X10^3/ul (0.83-4.51); Lymphocyte % 24.9 % (19-41); Mean Corp Hgb Conc 33.8 g/dL (32-36); Mean Corpuscular Hgb 32.9 pg (27.0-32.0); Mean Corpuscular Volume 97.5 fL (80-94); Mean Platelet Vol. 10.3 fl (6.2-12.0); Monocyte# 0.79 X10^3/uL; Monocyte% 11.3 % (0-10); NRBC Flagged by Analyzer 0 % (0-5); Neutrophil # 3.97 X10^3/uL (2.7-7.7); Neutrophil % 56.7 % (47-70); Platelet Count 228 K/mm3 (150-450); RBC Distribution Width CV 12.9 % (11.6-14.6); RBC Distribution Width SD 46.5 fl (35.1-43.9); Red Blood Count 4.74 M/mm3 (4.6-6.2)
[2024-02-27 12:30] LABS: ALB/GLOB Ratio 1.2 RATIO (0.9-2.4); AST(SGOT) 11 U/L (15-37); Alanine Aminotransfer ALT/SGPT 19 U/L (16-61); Albumin, Serum 3.7 g/dL (3.2-5.0); Alkaline Phosphatase 75 U/L (45-117); Anion Gap 3 (5-15); BUN 14 mg/dL (7-18); BUN/Creat Ratio 13.9 RATIO (10-20); Calcium,Total 8.8 mg/dL (8.5-10.1); Chloride 106 mmol/L (98-107); Cholesterol 149 mg/dL (200); Creatinine, Serum 1.01 mg/dL (0.70-1.30); EST Glomerular Filtration Rate 81 mL/min (>60); Est Glom Filt Rate - Afr Amer 98 mL/min (>60); Glucose 93 mg/dL (74-106); High Density Lipoprotein 53 mg/dL; Potassium 4.4 mmol/L (3.5-5.1); Protein, Total 6.7 g/dL (6.4-8.2); Sodium Level 138 mmol/L (136-145); Triglycerides 91 mg/dL; Very Low Density Lipoprotein 18 mg/dL (5-40)
[2024-02-27 12:37] LABS: Amphetamine Urine VISTA NEGATIVE (<1000 ng/mL); Barbiturate Urine VISTA NEGATIVE (< 200 ng/mL); Benzodiazepine Urine VISTA NEGATIVE (< 200 ng/mL); Cocaine Urine VISTA NEGATIVE (< 300 ng/mL); Ecstacy Urine VISTA NEGATIVE (< 500 ng/mL); Methadone Urine VISTA NEGATIVE (< 300 ng/mL); PCP Urine VISTA NEGATIVE (< 25 ng/mL); THC Urine VISTA NEGATIVE (< 50 ng/mL); Vista UDS pH Range 5
[2024-02-27 13:00] LABS: Hemoglobin A1c 5.4 % (3.8-5.6)
== END | disposition home or self-care (01) ==
PROVIDERS: PCP Family Medicine; Referring Provider Family Medicine; Visit Provider Family Medicine
DX: Z00.00 Encounter for general adult medical examination without abnormal findings (principal); R73.01 Impaired fasting glucose; Z12.5 Encounter for screening for malignant neoplasm of prostate; Z79.899 Other long term (current) drug therapy
CPT/HCPCS: 36415; 80053; 80061; 80307; 81002; 83036; 84153; 85025; G0103

== ENCOUNTER → 2024-12-07 | Outpatient (CLI) | payer BC, SELFPAY ==
--- NOTE | 2024-12-07 10:54 | MRI_ITS ---
PROCEDURE: SPINE LUMBAR (ROUTINE) 12/07/2024 REASON FOR EXAM: PAIN TECHNIQUE: Procedure Code: MRISPL Modality: MR Procedure: SPINE LUMBAR (ROUTINE) COMPARISON: 12/04/2021 MRI lumbar spine. FINDINGS: Normal lordosis. Diffuse spondylosis. Conus exhibits normal position, contour, and signal intensity. Degenerative endplate changes at L1-2 and L5-S1. Marrow signal intensity appears otherwise normal. Subcutaneous soft tissue edema posteriorly. Bilateral L5 pedicle edema is less severe than previous, and most likely due to adjacent facet arthrosis. T11-12: Small disc bulge. L1-2: Broad-based disc bulge. Bilateral facet arthrosis. Little or no change. L2-3: Disc bulge. Bilateral facet arthrosis. Little or no change. L3-4: Disc bulge has enlarged right posterolateral. Bilateral facet arthrosis. Mild unchanged left foraminal stenosis. Celo-[id number]-[id number] right foraminal stenosis with mild effacement of the right L3 root, slightly more severe than previous. L4-5: Grade 1 anterolisthesis and mild disc bulge exhibiting little or no change. No L4 pars defect. Bilateral facet arthrosis is more severe. Mild spinal stenosis is slightly more severe than previous. [id number]-vl-[id number] bilateral foraminal stenosis with mild effacement of the L4 roots, exhibiting little or no change. L5-S1: Grade 1 retrolisthesis and broad-based disc protrusion predominantly left paracentral, slightly enlarged since previous. Bilateral facet arthrosis. Mild left lateral recess stenosis. Moderate right and severe left foraminal stenosis with effacement of the left greater than right L5 roots, more severe in the left compared to previous. No other significant disc bulge or herniation is identified. Remaining intervertebral foramina and spinal canal appear adequately patent. Surrounding soft tissues appear unremarkable. MRI/Spine Lumbar (Routine) IMPRESSION: L5-S1: Retrolisthesis and disc protrusion which is slightly enlarged. Foramina l effacement of the stii-sotycgi-zwul-right L5 roots, more severe in the left compared to previous. Mild left lateral recess stenosis. L4-5: Anterolisthesis and disc bulge. More severe bilateral facet arthrosis. Mild spinal stenosis is slightly more severe. Foraminal effacement of the L4 roots exhibits little or no change. L3-4: Enlarged disc bulge. Foraminal effacement of the right L3 root, slightly more severe. Unchanged mild left foraminal stenosis. Spondylosis Reading Location: [facility]
== END | disposition home or self-care (01) ==
PROVIDERS: PCP Family Medicine; Referring Provider Student in an Organized Health Care Education/Training Program; Visit Provider Student in an Organized Health Care Education/Training Program
DX: M51.362 Other intervertebral disc degeneration, lumbar region with discogenic back pain and lower extremity pain (principal); M43.16 Spondylolisthesis, lumbar region
CPT/HCPCS: 72148